=== PATIENT | male | born 1955 | race Caucasian/White ===

== ENCOUNTER → 2020-05-18 | Day surgery (SDC) | payer BC ==
[~2020-05-18] MED LIST: Ketamine 200 MG/20 ML MDV ONE; Lactated Ringers 1,000 ML IV SCH; Lidocaine 2% 5 ML SDV ONE; Midazolam 1 MG/ML 2 ML SDV ONE; Phenylephrine 1% 10 MG/ML SDV ONE; Propofol 200 MG/20 ML SDV ONE; fentaNYL 100 MCG/2 ML SDV ONE
--- NOTE | 2020-05-18 13:14 | OR ---
DATE OF OPERATION: 05/18/2020 PREOPERATIVE DIAGNOSIS: 1. GASTROESOPHAGEAL REFLUX DISEASE. 2. ABDOMINAL PAIN WITH ALTERED BOWEL HABITS. POSTOPERATIVE DIAGNOSIS: 1. GASTROESOPHAGEAL REFLUX DISEASE. 2. ABDOMINAL PAIN WITH ALTERED BOWEL HABITS. SURGEON: Berto Vaz MD PROCEDURE: 1. DIAGNOSTIC EGD WITH BIOPSIES X3, TWILA. 2. FULL-LENGTH COLONOSCOPY WITH FORCEPS POLYP REMOVAL X2, RECTOSIGMOID BIOPSIES X4. ANESTHESIA: MAC. COMPLICATIONS: None. SPECIMEN: 1. Antral biopsy x2. 2. Distal esophageal biopsy x1. 3. Antral TWILA. 4. Two small sessile polyps, distal sigmoid colon. 5. Biopsy x4, rectosigmoid junction. FINDINGS: 1. Full-length diagnostic EGD. 2. Intestinal metaplasia, antrum. 3. Mild GERD with possible short-segment Phelps's changes. 4. Full-length diagnostic colonoscopy. 5. Sessile polyps x2, distal sigmoid colon. 6. [id number] lesion, rectosigmoid area. RECOMMENDATIONS: The patient will need close followup for pathology reports with Dr. Golden who was called on the patient's findings. INDICATIONS: Mr. Camarena has been having some ongoing GI issues. He does have a history of reflux, but lately he has been having some low back pain that resolves with 3 or [address] Golden sent him for both upper and lower diagnostic endoscopies. DESCRIPTION OF PROCEDURE: The patient was prepped and draped, placed in the left lateral decubitus position. A lubricated Olympus gastroscope was inserted over a bit, advanced to cricopharyngeus area, and easily intubated into the esophagus. The esophageal lining was essentially benign in its entire course. The Z-line was crisp and sharp around 43 cm. There was no hernia present, but some mild spontaneous GERD was seen. There was 1 small area of possible short- segment Phelps's and a biopsy was taken. No inflammatory changes, stricturing, ulceration, or otherwise. The scope was advanced into the stomach, through the pylorus, and into the second portion of the duodenum. This and the duodenal bulb were benign. The scope was brought back into the stomach and retroflexed. The upper fundus and cardia were completely unremarkable. Upon straightening, the rest of the fundus was benign. The patient does have intestinal metaplasia of the antrum. Three biopsies were taken for confirmation along with a CLOtest. Air was then suctioned from the stomach and the scope removed without complication. A lubricated Olympus colonoscope was then inserted and with relative ease advanced to the cecum. We were able to directly visualize the ileocecal valve and appendiceal orifice. The bowel prep was adequate. Upon withdrawal of the scope, cecum, ascending, transverse, and descending colons were completely benign. In the sigmoid colon in its most distal portion around 30 cm, the patient had 2 small sessile polyps, each around 2 to 3 mm, both removed with forceps in their entirety. The rectosigmoid junction had an area of narrowing approximately 8 to 10 cm in length with mucosal changes consistent with chronic inflammation, possible tumor. This was not quite an [id number] lesion, but it had appearances that are concerning. We did do 4 biopsies of the quality audit representative areas without any complication. The rectal vault itself was benign. Retroflexion showed no anal lesions. Air was then suctioned and the scope removed without complication. ADONIS/CALLIE /[id number]
== END ==
LOC: CC.SDS 09:58
PROVIDERS: ATTEND Family Medicine
DX: K21.00 Gastro-esophageal reflux disease with esophagitis, without bleeding (principal); D12.5 Benign neoplasm of sigmoid colon; I78.1 Nevus, non-neoplastic; K29.70 Gastritis, unspecified, without bleeding; K63.89 Other specified diseases of intestine; K31.89 Other diseases of stomach and duodenum; F17.210 Nicotine dependence, cigarettes, uncomplicated; I10 Essential (primary) hypertension; Z20.822 Contact with and (suspected) exposure to COVID-19; Z01.812 Encounter for preprocedural laboratory examination; Z79.899 Other long term (current) drug therapy; Z98.890 Other specified postprocedural states
CPT/HCPCS: 00813; 87081; J2001; J2250; J2370; J2704; J3010; J7120; U0002